=== PATIENT | male | born 1965 | race Caucasian/White ===

== ENCOUNTER 2018-08-31 17:15 | Emergency (ER) | payer BC ==
[2018-08-31 18:25] VITALS: TEMP 97.7; BMI 31.6
--- NOTE | 2018-08-31 18:27 | PDOC ---
Rapid Medical Evaluation Chief Complaint: Lightheaded Time Seen by Provider: 08/31/18 18:23 Medical Evaluation: 08/31/18 18:23 I have performed a brief in-person evaluation of this patient. The patient presents with a chief complaint of: started having dizziness and spinning sensation yesterday which is worsening today. Patient report was moving things around in his house and carrying heavy furniture yesterday and started feeling dizzy with N/V. Denies syncope, CP, SOB Pertinent physical exam findings: A&O x 3. heart RRR I have ordered the following: EKG The patient will proceed to the ED for further evaluation. Discharge Disposition - Diagnosis Vertigo, Dizziness - Discharge Dispostion Condition at time of disposition: Stable - Referrals - Patient Instructions - Post Discharge Activity
--- NOTE | 2018-08-31 20:01 | PDOC ---
History of Present Illness - General Chief Complaint: Lightheaded Stated Complaint: DIZZY Time Seen by Provider: 08/31/18 18:23 History Source: Patient - History of Present Illness Initial Comments: 09/01/18 00:03 53-year-old male complaining of nausea, vomiting, dizziness and headache For 1 day. Patient reports eating arabic food today. Patient reported days he's been moving heavy boxes yesterday. Denies chest pain, shortness of breath, abdominal pain, diarrhea, urinary symptoms. 09/01/18 05:13 Past History - Past Medical History Allergies/Adverse Reactions: Allergies Allergy/AdvReac Type Severity Reaction Status Date / Time No Known Allergies Allergy Verified 08/31/18 18:25 Home Medications: Ambulatory Orders Nebivolol [Bystolic -] 5 mg PO ASDIR 08/31/18 COPD: No HTN: Yes - Suicide/Smoking/Psychosocial Hx Smoking History: Never smoked Review of Systems - Review of Systems Able to Perform ROS?: Yes Is the patient limited Arabic proficient: No ABD/GI: Yes: Nausea, Vomiting. No: Abdominal cramping Neurological: Yes: Headache, Dizziness. No: Symptoms reported, See HPI, Numbness, Paresthesia, Pre-Existing Deficit, Seizure, Tingling, Tremors, Weakness, Unsteady Gait, Ataxia, Other *Physical Exam - Vital Signs Last Vital Signs Temp Pulse Resp BP Pulse Ox 97.7 F 65 18 163/86 100 08/31/18 18:22 08/31/18 18:22 08/31/18 18:22 08/31/18 18:22 08/31/18 18:22 - Physical Exam General Appearance: Yes: Appropriately Dressed HEENT: positive: Other (no lynne gordon pike) Cardiovascular: positive: Regular Rhythm, Regular Rate Gastrointestinal/Abdominal: positive: Normal Bowel Sounds, Soft. negative: Tender Extremity: positive: Normal Capillary Refill, Normal Inspection, Normal Range of Motion Integumentary: positive: Normal Color, Dry, Warm Neurologic: positive: Fully Oriented, Alert, Normal Mood/Affect ED Treatment Course - LABORATORY CBC & Chemistry Diagram: 08/31/18 21:00 08/31/18 21:00 Medical Decision Making - Medical Decision Making A: vertigo P: cbc cmp troponin EKG: NSR: 75bpm CT head : neg 09/01/18 00:06 patient s/p IVF. now feels better. no vomiting no dizziness at this time 09/01/18 00:38 Orthostatic v/s supine: 142/67/ hrt 72/ 98% sittin/87, 80, 100% laying 155/81, 80, 100% *DC/Admit/Observation/Transfer Diagnosis at time of Disposition: Vertigo, Dizziness - Discharge Dispostion Disposition: HOME Condition at time of disposition: Stable - Referrals Referrals: Carlene Bobo MD [Staff Physician] - Call tomorrow - Patient Instructions Printed Discharge Instructions: Vertigo Additional Instructions: drink plenty of fluids. Please follow-up with your doctor as soon as possible. return to the emergency room for any worsening symptoms. - Post Discharge Activity Forms/Work/School Notes: Back to Work
[2018-08-31] MEDS ORDERED: ONDANSETRON 4 MG/2 ML VIAL IVPB ONE (20:25)
[2018-08-31] MEDS ORDERED: SODIUM CHLORIDE 500 ML IV STA (20:25)
--- NOTE | 2018-08-31 20:25 | PDOC ---
*Physical Exam - Vital Signs Last Vital Signs Temp Pulse Resp BP Pulse Ox 97.7 F 65 18 163/86 100 08/31/18 18:22 08/31/18 18:22 08/31/18 18:22 08/31/18 18:22 08/31/18 18:22 ED Treatment Course - LABORATORY CBC & Chemistry Diagram: 08/31/18 21:00 08/31/18 21:00 Medical Decision Making - Medical Decision Making 08/31/18 20:25 Patient seen by the advanced practice provider under my direct supervision. Ancillary testing reviewed as necessary. I agree with plan as outlined by the advanced practice provider. *DC/Admit/Observation/Transfer Diagnosis at time of Disposition: Vertigo, Dizziness - Discharge Dispostion Disposition: HOME Condition at time of disposition: Stable - Referrals Referrals: Carlene Bobo MD [Staff Physician] - Call tomorrow - Patient Instructions Printed Discharge Instructions: Vertigo Additional Instructions: drink plenty of fluids. Please follow-up with your doctor as soon as possible. return to the emergency room for any worsening symptoms. - Post Discharge Activity Forms/Work/School Notes: Back to Work
[2018-08-31] MEDS ORDERED: ONDANSETRON 4 MG/2 ML VIAL ONE (20:43)
[2018-08-31 21:16] LABS: BASO % 0.3 % (0-2.0); EOS % 0.2 % (0-4.5); HEMATOCRIT 43.1 % (35.4-49); HEMOGLOBIN 14.3 GM/dL (11.7-16.9); LYMPH % 15.9 % (8-40); MCH 29.8 pg (25.7-33.7); MCHC 33.2 g/dl (32.0-35.9); MEAN PLT VOLUME 8.2 fl (7.5-11.1); MONO % 4.7 % (3.8-10.2); NEUT % 78.9 % (42.8-82.8); PLATELET COUNT 208 K/MM3 (134-434); RBC 4.79 M/mm3 (4.00-5.60); RDW 12.7 % (11.9-15.9); WHITE BLOOD COUNT 15.8 K/mm3 (4.0-10.0)
[2018-08-31 21:52] LABS: ALBUMIN 4.4 g/dl (3.4-5.0); ALK PHOS 87 U/L (45-117); ANION GAP 11 MMOL/L (8-16); BILIRUBIN,TOTAL 0.5 mg/dL (0.2-1); BLOOD UREA NITROGEN 16 mg/dL (7-18); CALCIUM 9.2 mg/dL (8.5-10.1); CHLORIDE 104 mmol/L (98-107); CO2 24 mmol/L (21-32); CREATININE 1.1 mg/dL (0.55-1.3); GLUCOSE,RANDOM 171 mg/dL (74-106); POTASSIUM 3.5 mmol/L (3.5-5.1); SGOT/AST 26 U/L (15-37); SGPT/ALT 49 U/L (13-61); SODIUM 140 mmol/L (136-145); TOT PROT 7.4 g/dl (6.4-8.2)
[2018-08-31] MEDS ORDERED: SODIUM CHLORIDE 1,000 ML IV STA (21:55)
[2018-09-01 00:44] VITALS: BP 142/67; PULSE 72
--- NOTE | 2018-09-01 13:43 | EKG ---
Test Reason : Blood Pressure : / mmHG Vent. Rate : 075 BPM Atrial Rate : 075 BPM P-R Int : 186 ms QRS Dur : 094 ms QT Int : 372 ms P-R-T Axes : 045 -21 033 degrees QTc Int : 415 ms NORMAL SINUS RHYTHM VOLTAGE CRITERIA FOR LEFT VENTRICULAR HYPERTROPHY ABNORMAL ECG NO PREVIOUS ECGS AVAILABLE Confirmed by MD Francisco, Gonzales ([id number]) on 09/01/2018 1:43:27 PM Referred By: Confirmed By:Gonzales Singh MD
[2018-09-02 05:39] LABS: LIPASE 162 U/L (73-393)
== END 2018-09-01 00:55 | disposition home or self-care (01) ==
LOC: JER 17:15
PROC: 3E0337Z Introduction of Electrolytic and Water Balance Substance into Peripheral Vein, Percutaneous Approach (ICD-10-PCS; principal; 2018-08-31)
PROC: 3E0337Z Introduction of Electrolytic and Water Balance Substance into Peripheral Vein, Percutaneous Approach (ICD-10-PCS; 2018-08-31)
PROC: 3E033GC Introduction of Other Therapeutic Substance into Peripheral Vein, Percutaneous Approach (ICD-10-PCS; 2018-08-31)
DX: R51 Headache (principal)
CPT/HCPCS: 36415; 70450-TC; 80053; 82550; 82553; 83690; 84484; 85025; 93005; 93010; 99282-25; J7030

== ENCOUNTER 2021-01-05 08:48 | Emergency (ER) | payer BC ==
[2021-01-05 09:01] VITALS: TEMP 99.6; BMI 31.6
[2021-01-05 09:39] LABS: EPI CELLS 2 /uL (0-25.1); HYALINE CASTS 1 /uL (0-3.1); URINE APPEARANCE TURBID; URINE BILIRUBIN NEGATIVE (NEGATIVE); URINE COLOR ORANGE; URINE GLUCOSE (UA) 1+ (NEGATIVE); URINE KETONE NEGATIVE (NEGATIVE); URINE LEUK ESTERASE 3+ (NEGATIVE); URINE NITRITE POSITIVE (NEGATIVE); URINE PROTEIN 2+ (NEGATIVE); URINE RBC 10458 /uL (0-23.9); URINE WBC 3539 /uL (0-25.8)
[2021-01-05 11:15] LABS: BASO % 0.4 % (0-2.0); EOS % 0.4 % (0-4.5); HEMATOCRIT 42.1 % (35.4-49); HEMOGLOBIN 14.4 GM/dL (11.7-16.9); LYMPH % 5.2 % (8-40); MCH 30.2 pg (25.7-33.7); MCHC 34.2 g/dl (32.0-35.9); MEAN CELL VOLUME 88.4 fl (80-96); MEAN PLT VOLUME 7.9 fl (7.5-11.1); MONO % 6.5 % (3.8-10.2); NEUT % 87.5 % (42.8-82.8); PLATELET COUNT 171 10^3/uL (134-434); RBC 4.76 M/mm3 (4.00-5.60); RDW 13.1 % (11.9-15.9); WHITE BLOOD COUNT 12.4 K/mm3 (4.0-10.0)
[2021-01-05 11:16] LABS: URINE BACTERIA 552.6 /uL (0-1359)
[2021-01-05 11:38] LABS: CALCIUM 9.3 mg/dL (8.5-10.1)
[2021-01-05 11:39] LABS: ALBUMIN 4.2 g/dl (3.4-5.0); BLOOD UREA NITROGEN 17.5 mg/dL (7-18)
[2021-01-05 11:42] LABS: CREATININE 1.1 mg/dL (0.55-1.3)
[2021-01-05 11:43] LABS: BILIRUBIN,TOTAL 0.8 mg/dL (0.2-1)
[2021-01-05 11:44] LABS: TOT PROT 7.5 g/dl (6.4-8.2)
[2021-01-05 12:22] VITALS: BP 143/80; PULSE 83
== END 2021-01-05 12:22 | disposition home or self-care (01) ==
LOC: JER 08:48
DX: N10 Acute pyelonephritis (principal)
CPT/HCPCS: 36415; 74176-TC; 80053; 81003; 85025; 87086; 87186; 99284-25

== ENCOUNTER 2022-07-02 10:22 | Emergency (ER) | payer BC ==
[2022-07-02 10:31] VITALS: BMI 31.6
[2022-07-02] MEDS ORDERED: NEBIVOLOL 10 MG TABLET (FP) PO ONE (11:37)
[2022-07-02 12:11] LABS: BASO % 0.3 % (0-2.0); HEMOGLOBIN 14.1 GM/dL (11.7-16.9); LYMPH % 13.4 % (8-40); MCH 30.5 pg (25.7-33.7); MCHC 35.3 g/dl (32.0-35.9); MEAN CELL VOLUME 86.5 fl (80-96); MEAN PLT VOLUME 7.3 fl (7.5-11.1); MONO % 5.8 % (3.8-10.2); NEUT % 79.5 % (42.8-82.8); PLATELET COUNT 173 10^3/uL (134-434); RBC 4.62 M/mm3 (4.00-5.60); RDW 13.1 % (11.9-15.9); WHITE BLOOD COUNT 7.8 K/mm3 (4.0-10.0)
[2022-07-02 12:30] LABS: CALCIUM 8.9 mg/dL (8.5-10.1)
[2022-07-02 12:31] LABS: BLOOD UREA NITROGEN 17.2 mg/dL (7-18)
[2022-07-02 12:34] LABS: CREATININE 0.9 mg/dL (0.55-1.3)
[2022-07-02 13:15] VITALS: BP 153/87; PULSE 72; RESP 19; TEMP 98.6
== END 2022-07-02 13:20 | disposition home or self-care (01) ==
LOC: JER 10:22
DX: I10 Essential (primary) hypertension (principal); Z20.822 Contact with and (suspected) exposure to COVID-19
CPT/HCPCS: 0241U-QW; 36415; 80048; 82962; 84484; 85025; 93005; 93010; 99284-25